=== PATIENT | male | born 1975 | race Two or more races ===

== ENCOUNTER 2024-11-05 12:55 | Day surgery (SDC) | payer MEDICAID, SELFPAY ==
[2024-10-31 15:19] VITALS: BMI 33.8
[2024-11-05] VITALS (7 sets, daily range): BP systolic 116–142; BP diastolic 73–82; PULSE 70–88; RESP 16–20; TEMP 36.7; O2SAT 95–98; BMI 34.4
--- NOTE | 2024-11-05 13:10 | ESHP_ITS ---
RE: ELVA HOLCOMB : 1975 DATE OF ADMISSION: 11/05/2024 DATE OF PROCEDURE: 11/05/2024 HISTORY OF PRESENT ILLNESS: This patient was seen by me in [facility] in 06/2024. He was referred by Divine Price for colonoscopy. The patient was admitted last year to [facility] for left upper quadrant abdominal pain and he was told that he had diverticulitis. According to him, they also told him that he may have a colon cancer. The patient denies any history of colon cancer in the family or rectal bleeding. The patient was referred to Dr. Milner last year for a colonoscopy, but the patient backed up because he was scared for the procedure. The patient denies any other major medical illnesses. The patient gives a history of severe constipation in the past few years and is taking stool softeners, which have not worked well. PAST MEDICAL HISTORY: Negative for any major illnesses other than some asthma. HOME MEDICATIONS: 1. Ibuprofen. 2. Vitamin D. 3. Calcium. PAST SURGICAL HISTORY: 1. Surgery on his right hand on 01/04/2010. 2. Surgery on his face with a metal plate in 2002. PHYSICAL EXAMINATION: GENERAL: Slightly obese male who is 5 feet 2 inches tall, weighing 186 pounds. His BMI was 34. VITAL SIGNS: Temperature is 98.4, pulse 88, BP 133/83. HEENT: Examination of the head is normal. Eyes, nose, and throat were normal. NECK: Normal. CHEST: Revealed good breath sounds on both sides. HEART: Heart sinus rhythm without murmurs. ABDOMEN: Unremarkable. IMPRESSION: 1. Encounter for screening colonoscopy. 2. Obesity. 3. Asthma. COURSE OF ACTION: I advised the patient to undergo colonoscopy. The procedure was explained in detail including potential complications. The patient is agreeable for the procedure and it will be done under [facility]. DT: 12:29:21 TT: 13:09:00 Ref: [id number] - TID: [id number]
[2024-11-05] MEDS: RINGERS LACTATED 1000 ML 1,000 ML 100 ML IV (13:25)
== END 2024-11-05 14:34 | disposition home or self-care (01) ==
PROVIDERS: Referring Provider Surgery; Visit Provider Surgery
PROC: 0DBE8ZX Excision of Large Intestine, Via Natural or Artificial Opening Endoscopic, Diagnostic (ICD-10-PCS; CPT 45380; principal; 2024-11-05 14:30)
DX: Z12.11 Encounter for screening for malignant neoplasm of colon (principal); E66.9 Obesity, unspecified; J45.909 Unspecified asthma, uncomplicated; Z68.34 Body mass index [BMI] 34.0-34.9, adult; D12.3 Benign neoplasm of transverse colon; K57.30 Diverticulosis of large intestine without perforation or abscess without bleeding
CPT/HCPCS: 45380; J7120